=== PATIENT | female | born 1990 | race Caucasian/White ===

== ENCOUNTER 2023-11-19 04:58 | Inpatient (IN) | payer BC, SELFPAY ==
[2023-11-19] VITALS (155 sets, daily range): BP systolic 97–151; BP diastolic 61–93; PULSE 73–118; RESP 18; TEMP 36.2–37.7; O2SAT 84–100; BMI 28.0
--- NOTE | 2023-11-19 05:18 | LDADM ---
This patient, Merry Power, was admitted to Labor/Delivery/Recovery 107 on 11/19/23 at 04:58. Plans for labor, pain management and were discussed with patient. Patient/family oriented to hospital policies and general routines including ID bracelet, bed and alarms, visiting hours, pain management, procedures, bathroom and other care routines, personal items, smoking policy, room service/diet and guest tray routines, infant security routines, and visiting hours. Patient/Family are encouraged to report perceived risks to care and to ask questions if they do not understand what they are told or what they should do. See OBIX for further documentation.
[2023-11-19 05:44] LABS: Basophils Percent Auto 0.1 % (0.2-1.2); Eosinophils Absolute Auto 0.1 K/mm3 (0-0.3); Eosinophils Percent Auto 0.8 % (0-4.4); Hematocrit 34.3 % (37.0-47.0); Hemoglobin 11.6 g/dL (12.0-15.0); Immature Granulocyte Absolute 0.07 K/mm3 (0.00-0.031); Immature Granulocyte Percent A 0.9 % (0-0.5); Lymphocytes Absolute Auto 1.65 K/mm3 (0.9-3.2); Lymphocytes Percent Auto 22.2 % (18.3-44.2); Mean Corpuscular HGB Conc 33.8 g/dl (32-36); Mean Corpuscular Hemoglobin 31.4 pg (26-34); Mean Corpuscular Volume 92.7 fl (80-100); Mean Platelet Volume 9.3 fl (7.4-10.4); Monocytes Absolute Auto 0.8 K/mm3 (0.1-0.6); Monocytes Percent Auto 10.5 % (2.6-8.5); Neutrophils Absolute Auto 4.9 K/mm3 (1.3-6.7); Neutrophils Percent Auto 65.5 % (45.5-73.1); Platelet Count Result 276 k/mm3 (150-375); Red Cell Distribution Width 13.4 % (11.5-14.5); White Blood Count 7.4 K/mm3 (4.5-10.0)
[2023-11-19] MEDS: LACTATED RINGERS 1,000 ML 125 ML IV CONT ×2 (05:58→09:00)
[2023-11-19] MEDS: OXYTOCIN 30 UNITS/NS 500 ML 30 UNITS/500 ML BAG IV CONT (05:58)
[2023-11-19] MEDS: AMPICILLIN 2 GM/NS 100 ML 2 GM/100 ML BAG IVPB (05:59)
[2023-11-19 07:26] LABS: HIV 1/2 Ab P24 Ag Result Negative (Negative)
--- NOTE | 2023-11-19 07:51 | WPDHPUPDATE1 ---
History and Physical Update Update Date/Time: 11/19/23 07:51 multip at term, elective IOL. Pitocin and arom - clear, reassuring FHTs, 2 thick -3 History and Physical has been reviewed, including an updated exam of the patient. There are NO changes in the patient's condition. Risks, benefits, and alternatives have been discussed and questions answered. Patient agrees to proceed with procedure.
[2023-11-19] MEDS: AMPICILLIN 1 GM/NS 50 ML 1 GM/50 ML BAG IVPB ×2 (10:08→13:52)
[2023-11-19 10:48] LABS: Rapid Plasma Reagin Non-Reactive (NonReactive)
[2023-11-19] MEDS: SODIUM CHLORIDE 0.9% IV 300 ML 600 ML I-UTERINE (10:51)
[2023-11-19] MEDS: SODIUM CHLORIDE 0.9% IV 1,000 ML 150 ML I-UTERINE (13:45)
--- NOTE | 2023-11-19 15:10 | PM.OBPRVD ---
OB - Vaginal Delivery Note Procedure Delivery date: 11/19/23 Induction method: AROM and Per Pitocin Protocol Delivery monitor: External FHT and Internal Uterine Route of delivery: Indication for instrumentation: nonreassuring FHR tracing Episiotomy description: None Laceration Description: Perineal - 2nd Degree Delivery repair: vicryl Quantitative Blood Loss (ml): 300 Anesthesia type: Epidural Narrative: Vacuum assisted delivery, 1 pull on the vacuum over 1 contraction and 2 pushes. Vacuum was applied for 30 seconds. Station was +4. Kiwi vacuum. Applied for nonreassuring heart tones.
[2023-11-19] MEDS: OXYTOCIN 30 UNITS/NS 500 ML 30 UNITS/500 ML BAG 125 UNITS IV CONT (15:18)
--- NOTE | 2023-11-19 18:08 | OBPPTRN ---
Patient transferred to post room #290 via wheelchair. Support person- spouse- Favio present. Oriented to unit, room, information board, rooming in, admission packet and security measures. Patient verbalizes understanding. Nursery extension given to call for updates on .
[2023-11-19] MEDS: IBUPROFEN 600 MG TABLET PO (19:15)
[2023-11-19] MEDS: LABETALOL HCL 100 MG TABLET PO (22:59)
[2023-11-20 01:29] VITALS: BP 113/74; PULSE 97; RESP 18; TEMP 36.6; O2SAT 98
[2023-11-20] MEDS: IBUPROFEN 600 MG TABLET PO ×2 (01:29→07:22)
[2023-11-20 05:25] LABS: Hematocrit 30.2 % (37.0-47.0)
[2023-11-20] MEDS: MULTIVIT/MIN/PREN/FOL AC/IRON TABLET 1 TAB PO (07:22)
--- NOTE | 2023-11-20 07:24 | PM.OBPNVD ---
OB - PN: Subj Subjective Date/time seen: 11/20/23 07:24 Interval history: pp day 1 doing well baby still not feeding well, checking bs OB - PN: Obj Data Labs 11/20/23 05:09 Labs: Laboratory Results - last 24 hr 11/19/23 11/20/23 05:31 05:09 Hgb 10.0 L Hct 30.2 L RPR Non-reactive HIV 1&2 Ab/P24 Ag 4thGn Negative OB - PN A/P Plan day: 1 Plan: routine care Time Spent With Patient Time: Total time spent is greater than 50% in coordination of care (as documented) at patient's floor/unit and/or counseling patient: Review of Systems Review of Systems: All systems reviewed & are unremarkable except as noted in HPI and below Exam Const: General: cooperative and healthy appearing Chest: Chest palpation & inspection: normal inspection of the chest Resp: Effort & Inspection: normal respiratory effort Back/Spine/Pelvis: Back: no CVA tenderness Skin: General skin exam: normal color
[2023-11-20 07:30] VITALS: BP 119/81; PULSE 90; RESP 16; TEMP 36.9; O2SAT 99
--- NOTE | 2023-11-20 08:53 | WPDANLDPN2 ---
Anes-Prog Note L&D Date/Time: 11/20/23 08:53 Neuro status: Neuro function grossly intact. Cardiovascular status: normal Respiratory status: normal Airway patency: baseline Mental status: baseline Post-Op hydration status: normal Vital Signs: Last Vital Signs Temp 36.6 C 11/20/23 01:29 Pulse 97 11/20/23 01:29 Resp 18 11/20/23 01:29 BP 113/74 11/20/23 01:29 Pulse Ox 98 11/20/23 01:29 O2 Del Method Room Air 11/19/23 18:20 Pain score (VAS): 0 I/O: Intake & Output 11/19/23 11/20/23 11/20/23 23:59 07:59 15:59 Intake Total 1050 Output Total 125 Balance 925 Post-procedural complaints: none Patient feedback: Patient satisfied with anesthetic care.
--- NOTE | 2023-11-20 09:00 | PC.NURSE ---
Introductions were made, then consulted with patient to assess needs related to . Mother led the conversation with her?plans to feed?her and the?experience so far. Mother chooses to pump and bottle feed. She is pumping sometimes, her nipples are sore. She has nipple butter and hydrogel pads. we discussed using a low suction if the pump feels painful. She states she uses it on the lowest setting. Mom said she isn't too keen on pumping, she just wants to provide what breastmilk she does get. We discussed milk production, building/maintaining a milk supply. Parents voiced understanding of information, demonstrated learning and will call if there is a request for assistance. Reported to the Primary RN.
[2023-11-20] MEDS: LABETALOL HCL 100 MG TABLET PO (10:12)
[2023-11-20 12:48] VITALS: BP 122/77; PULSE 91; RESP 16; TEMP 36.9; O2SAT 99
--- NOTE | 2023-11-20 14:20 | PC.NURSE ---
Consulted with mother concerning needs and she shared her ability to independently latch infant optimally without pain. Mother is feeding appropriately for growth of and understands stimulating to eat if needed. Infant has had appropriate feedings in the last 24 hours meets the outcomes for weight, output, blood sugar and jaundice at this time. Reinforced understanding of milk production, transition of milk, signs of adequate intake, transition of stool, prevention/relief of engorgement, plugged ducts, mastitis, responsive watching for feeding cues, the different methods of stimulating to breastfeed 1-3 hours after the start of the last feeding, community resources, and when to call a provider using the resource of the feeding sheet along with the mom and baby guide. Mother voiced understanding of the information shared, is confident to continue effectively her infant at home, when to call for assistance, denies any additional assistance or education at this time. Reported to the Primary RN.
--- NOTE | 2023-11-20 16:53 | PM.OBDSVD ---
DS: Admitting Diagnosis Discharge Date November 20, 2023 Admitting Diagnosis term DS: Discharge Diagnosis Discharge Diagnosis (1) Post term , delivered: Code(s): O48.0 - Post-term Status: Acute OB - DS: Summary OB Procedures : None OB Procedures Intrapartum: Spontaneous Vag Delivery OB Procedures: : None Peripartum Data Laceration Description: Perineal - 2nd Degree Episiotomy description: None Time Spent with Patient Time attestation: Total time spent providing and/or coordinating discharge services: DS: Data Data Completed and Pending Labs on day of discharge: Labs from last 24 hours 11/20/23 05:09 Hgb 10.0 L Hct 30.2 L Discharge Plan Discharge Consulting providers: Matilde Vitale Discharging Clinician: Miguel De La Torre Patient Disposition: Home, Self-Care Activity: pelvic rest Diet: regular Discharge Instructions: Education: Mom and Baby Guide Given to: Mother Follow-Up: Call your delivering provider's office for an appointment to be seen in: call and make an appointment Mom and baby should come to the [facility] for the follow-up appointment. Appointment Date/Time: November 21, 2023 at 9:00 am What to expect at your follow-up visit: Physical Assessment Call [phone] if you are unable to keep your appointment time. BREAST CARE: * Wear a snug supportive bra. * For engorgement discomfort: Breast Feeding: * Apply warm moist washcloths * Express milk as needed to relieve engorgement * Wear loose clothing Bottle Feeding: * May apply ice packs * For sore nipples: * Identify correct latch-on * Apply warm moist washcloths before and after nursing * Air dry nipples after nursing * May apply Lansinoh cream to nipples EPISIOTOMY/PERINEAL CARE: * Until bleeding stops, use your lisa bottle after urinating * Change your pad frequently throughout the day * You may take sitz baths several times a day (fill your bathtub with warm water and soak for 20 minutes.) Do NOT bathe in the water * No tub baths until seen by your physician - You may shower ACTIVITY: * Rest as much as possible. * Do not exercise or lift anything heavier than your baby (such as laundry or other children.) * Avoid stairs or driving as much as possible. * Do not put anything into the vagina. No douching, tampons, or sexual activity until seen by physician. NOTIFY PHYSICIAN IF YOU HAVE ANY QUESTIONS OR IF ANY OF THE FOLLOWING SYMPTOMS OCCUR: * If your episiotomy or incision becomes red, swollen, or more painful than what you have experienced in the hospital. * If your vaginal bleeding becomes foul smelling. * If your vaginal bleeding becomes more heavy than a period or if your bleeding changes from pink to bright red. However, you may pass an occasional walnut-sized clot once or twice for the first week . * If you experience a sharp, shooting pain in you calves. * If you discover a hard, reddened area on your breast or if you experience flu-like symptoms. DIET: * Eat regular, well-balanced meals. * Drink plenty of fluids daily. If , drink to thirst. Patient Instructions: Antibiotic Form Stand Alone Forms: General Discharge Information Follow-up/Referrals: Miguel De La Torre MD [Physician] - Discharge Medications: Continued Adult Low Dose Aspirin 81 mg Tablet 81 mg PO DAILY labetalol 100 mg Tablet 100 mg PO Q12H #2 Tablet 1 tablet ferrous sulfate 325 mg (65 mg iron) Tablet 325 mg PO DAILY Date of admission: 11/19/23 04:58 Primary Care Provider: ArgeliaMelissa Admitting Provider: Miguel De La Torre Attending physician on admission: Miguel De La Torre Condition: Stable
[2023-11-21 09:30] VITALS: BP 121/76; PULSE 91; RESP 18; TEMP 36.6; O2SAT 99
== END 2023-11-20 18:05 | disposition home or self-care (01) | DRG 806 ==
LOC: ANHLDR 05:00 → ANHOB2 19:27
PROVIDERS: Admitting Provider Obstetrics & Gynecology; PCP Registered Nurse; Visit Provider Obstetrics & Gynecology
DX: O76 Abnormality in fetal heart rate and rhythm complicating labor and delivery (principal); O10.92 Unspecified pre-existing hypertension complicating childbirth; Z37.0 Single live birth; O70.1 Second degree perineal laceration during delivery; O99.824 Streptococcus B carrier state complicating childbirth; O69.81X0 Labor and delivery complicated by cord around neck, without compression, not applicable or unspecified; Z3A.38 38 weeks gestation of pregnancy
CPT/HCPCS: 36415; 85014; 85018; 85025; 86592; 86703; 86850; 86900; 86901; A9270; G0432; J0290; J2590; J2795; J7030; J7120